=== PATIENT | male | born 1975 | race Caucasian/White ===

== ENCOUNTER 2017-12-02 13:38 | Emergency (ER) | payer BC ==
[2017-12-02 13:56] VITALS: BP 111/78; PULSE 77; TEMP 98.6; BMI 25.8
--- NOTE | 2017-12-02 14:15 | PDOC ---
History of Present Illness - General Chief Complaint: Injury Stated Complaint: LOWER LIP LACERATION Time Seen by Provider: 12/02/17 13:41 History Source: Patient Exam Limitations: No Limitations - History of Present Illness Initial Comments: 12/02/17 14:39 42y m no pmhx presents with lip laceration. the pt was playing foot ball, went up to catch a ball and landed with his chin strking someone elses head. no other injuries, loc, dzziness, neck pain, or other injuries no loose teeth Past History - Past Medical History COPD: No - Immunization History Immunization Up to Date: Yes - Suicide/Smoking/Psychosocial Hx Smoking History: Never smoked Have you smoked in the past 12 months: No Information on smoking cessation initiated: No Hx Alcohol Use: No Drug/Substance Use Hx: No Substance Use Type: Alcohol Review of Systems - Review of Systems Able to Perform ROS?: Yes Comments:: 12/02/17 14:40 HEENT: + lip laceratio no reported vision changes, sore throat Musculskelatal - no reported back pain, joint swelling neurological: no reported headache, numbness, focal weakness, tingling, *Physical Exam - Vital Signs Last Vital Signs Temp Pulse Resp BP Pulse Ox 98.6 F 77 20 111/78 97 12/02/17 13:40 12/02/17 13:40 12/02/17 13:40 12/02/17 13:40 12/02/17 13:40 - Physical Exam Comments: 12/02/17 14:41 GENERAL: The patient is awake, alert, and fully oriented, Nontoxic - in no acute distress. HEAD: Normocephalic, atraumatic. ENT: Normal voice, Moist mucous membranes no loose teeth, ~1cm gaping laceration on the midline of the lower lip, not through and through, no muscleculatrue visible, no fb noted Procedures - Consent Consent obtained: Verbal - Laceration/Wound Repair Lower Lip Wound Length: to 2.5 cm Wound Explored: clean, no foreign body present Wound's Depth, Shape: irregular Anesthesia: 1% Lidocaine Amount of Anesthetic (ccs): 1 Wound Debrided: minimal Wound Repaired With: Sutures Suture Size/Type: 4:0 Number of Sutures: 1 Deep Layer Suture Size/Type: gut *DC/Admit/Observation/Transfer Diagnosis at time of Disposition: Laceration of lip Qualifiers: Encounter type: initial encounter Qualified Code(s): S01.511A - Laceration without foreign body of lip, initial encounter - Discharge Dispostion Disposition: HOME Condition at time of disposition: Improved Admit: No - Referrals Referrals: Philip Odonnell [Non Staff, Medical] - - Patient Instructions Printed Discharge Instructions: DI for Laceration Repair -- Simple Additional Instructions: Return to the emergency department immediately with ANY new, persistent or worsening symptoms including increasing pain, fevers, discharge, swelling, redness or any other concerns. The suture material will dissolve on its own after 5 days You MUST call and follow up with your doctor tomorrow for further evaluation of your symptoms. Results were discussed with you. Please make sure your doctor reviews the results of your emergency evaluation. Print Language: NEPALI - Post Discharge Activity
== END 2017-12-02 14:46 | disposition home or self-care (01) ==
LOC: FER 13:38
PROC: 0CQ1XZZ Repair Lower Lip, External Approach (ICD-10-PCS; principal; 2017-12-02)
DX: S01.511A Laceration without foreign body of lip, initial encounter (principal); W50.0XXA Accidental hit or strike by another person, initial encounter; Y93.61 Activity, american tackle football; Y92.321 Football field as the place of occurrence of the external cause
CPT/HCPCS: 99282-25